=== PATIENT | female | born 1980 | race Two or more races ===

== ENCOUNTER 2024-11-18 13:03 | Emergency (ER) | payer MEDICAID ==
[~2024-11-18] VITALS: Ht 157.5 cm; Wt 50.0 kg
[~2024-11-18 13:03] MED LIST: ZOF4T PO
[2024-11-18 13:12] VITALS: BP 153/103; PULSE 89; RESP 16; O2SAT 100
[2024-11-18 14:01] VITALS: TEMP 98.5
== END 2024-11-18 14:02 | disposition left against medical advice (07) ==
LOC: ER 13:04
DX: I10 Essential (primary) hypertension (principal); F41.9 Anxiety disorder, unspecified; Z88.1 Allergy status to other antibiotic agents; Z79.899 Other long term (current) drug therapy
CPT/HCPCS: 99281